=== PATIENT | male | born 1990 | race Caucasian/White ===

== ENCOUNTER 2022-07-08 08:56 | Emergency (ER) | payer SELFPAY ==
[2022-07-08 09:27] VITALS: BP 115/68; PULSE 77; RESP 14; TEMP 36.3; O2SAT 99
--- NOTE | 2022-07-08 11:02 | PC.NURSE ---
pt. was ambulating in and out of the ED without difficulty while in the waiting room.
[2022-07-08] MEDS: ACETAMINOPHEN 325 MG TABLET 650 MG PO (12:01)
[2022-07-08] MEDS: IBUPROFEN 600 MG TABLET PO (12:01)
[2022-07-08] MEDS: LIDOCAINE 5% PATCH 1 PATCH TRANSDERM (12:02)
--- NOTE | 2022-07-08 12:02 | ED.BACK ---
HPI - Back Pain/Injury General Chief Complaint: Back Pain/Injury Stated Complaint: back days Time Seen by Provider: 07/08/22 11:21 History of Present Illness HPI Narrative: 31-year-old male here for evaluation of right-sided back pain for the past several hours. Patient states that he was twisting his thorax to put his belt on and he felt pain on the right side of his back. States the pain improves when he is at rest and is worse when he is twisting his thorax. He has not attempted any medicine for his pain yet. He denies any numbness or tingling in his groin, incontinence or retention of bowel or bladder, weakness in his legs. Related Data Allergies Allergy/AdvReac Type Severity Reaction Status Date / Time No Known Allergies Allergy Verified 07/08/22 12:01 Review of Systems Review of Systems: Gen: Denies fevers or chills Eyes: Denies eye pain or visual change ENT: Denies congestion Respiratory: Denies shortness of breath or cough CV: Denies chest pain or palpitations GI: Denies abdominal pain nausea, emesis or diarrhea denies burning, urgency, frequency or hematuria Musculoskeletal: Reports right-sided back pain. Neuro: Denies numbness, tingling, weakness or focal weakness Skin: Denies rash Except as documented, all other systems reviewed and negative Exam Narrative: APPEARANCE: Well appearing, no pain in distress, well-nourished. Head: Normocephalic and atraumatic. EYES: PERRLA/EOMI, conjunctivae clear NOSE: No nasal drainage EARS: External ear normal in appearance THROAT: Oropharynx is clear. Mucous membranes are moist. NECK: Supple. No adenopathy, no masses. RESPIRATORY: Airway patent, respirations nonlabored. Clear to auscultation bilaterally, no rales, rhonchi, wheezing. CARDIOVASCULAR: Regular rate and rhythm without murmurs, rubs, or gallops. ABDOMINAL: Normoactive bowel sounds. Soft, nontender, nondistended. No rebound tenderness or guarding. MUSCULOSKELETAL: No midline tenderness to C, T or L-spine.. Patient's pain is in the right lower thoracic upper lumbar region; no rash in this area, area is nontender to palpation. NEURO: Normal speech. No focal neurologic deficits. SKIN: Skin is warm and dry. No rashes. PSYCHIATRIC: Normal affect/mood.. Course Vital Signs Vital signs: Vital Signs Temperature 97.4 F L 07/08/22 09:27 Pulse Rate 77 07/08/22 09:27 Respiratory Rate 14 07/08/22 09:27 Blood Pressure 115/68 07/08/22 09:27 Pulse Oximetry 99 07/08/22 09:27 Temperature 97.4 F L 07/08/22 09:27 Pulse Rate 77 07/08/22 09:27 Respiratory Rate 14 07/08/22 09:27 Blood Pressure 115/68 07/08/22 09:27 Pulse Oximetry 99 07/08/22 09:27 MDM - Back Pain/Injury MDM Narrative Medical decision making narrative: This patient presents with back pain most consistent with muscle sprain. Differential diagnoses includes lumbago versus musculoskeletal spasm / strain versus sciatica. Less likely sciatica as straight leg raise test was negative. No back pain red flags on history or physical. Presentation not consistent with malignancy (lack of history of malignancy, lack of B symptoms), fracture (no trauma, no bony tenderness to palpation), cauda equina (no bowel or urinary incontinence/retention, no saddle anesthesia, no distal weakness), AAA, viscus perforation, osteomyelitis or epidural abscess (no IVDU, vertebral tenderness), renal colic, pyelonephritis (afebrile, no CVAT, no urinary symptoms). Given the clinical picture, no indication for imaging at this time. He be discharged home with supportive measures, discussed return precautions and he voiced understanding. Discharge Plan Discharge Clinical Impression: Strain of lumbar region Patient Disposition: Home, Self-Care Condition: Stable Instructions: Antibiotic Form, Back Pain (ED) Additional Instructions: Your back pain today is likely due to a muscle strain. Alternate between Tylenol and ibuprofen. You can take 650mg of
== END 2022-07-08 12:25 | disposition home or self-care (01) ==
PROVIDERS: Emergency Provider Physician Assistant; PCP Family Medicine
DX: S39.012A Strain of muscle, fascia and tendon of lower back, initial encounter (principal); X50.9XXA Other and unspecified overexertion or strenuous movements or postures, initial encounter
CPT/HCPCS: 99283; A9270

== ENCOUNTER 2024-02-18 14:31 | Emergency (ER) | payer OTHER, SELFPAY ==
[2024-02-18 14:42] VITALS: BP 133/77; PULSE 82; RESP 16; TEMP 36.9; O2SAT 99
[2024-02-18] MEDS: TETANUS,DIPHTHERIA,AC PERTUSSIS ADULT (0.5 ML) BOOSTRIX IM (15:15)
--- NOTE | 2024-02-18 15:54 | ED.GENADULT ---
HPI - General Adult General Chief complaint: Wound/Laceration Stated complaint: cut ring finger right hand on sheet metal Source: patient Mode of arrival: ambulatory Limitations: no limitations History of Present Illness HPI narrative: Patient presents for evaluation of a laceration of the 4th digit of the right hand. He sustained the laceration about an hour ago while working. He cut his finger on a piece of sheet metal. He states his current pain is 1/10 in severity. No descriptive quality of the pain. No loss of range of motion. No paresthesias. Date of last tetanus unknown. He is not diabetic. He is ambidextrous. Related Data Allergies Allergy/AdvReac Type Severity Reaction Status Date / Time No Known Allergies Allergy Verified 07/08/22 12:01 Review of Systems Review of Systems: CONSTITUTIONAL: Denies fever, chills, or sweats. EYES: Denies visual changes, redness, or discharge. ENT: Denies rhinorrhea, congestion, sore throat, or otalgia. CARDIOVASCULAR: Denies chest pain, palpitations, or edema. RESPIRATORY: Denies cough or dyspnea. GASTROINTESTINAL: Denies abdominal pain, nausea, vomiting, or diarrhea. GENITOURINARY: Denies dysuria or hematuria. SKIN: Reports laceration of the 4th digit of the right hand MUSCULOSKELETAL:Reports pain in 4th digit of right hand. NEUROLOGIC: Denies headache, numbness, dizziness, or weakness. PSYCHIATRIC: Denies anxiety or depression. [facility] Past Medical History Medical History No pertinent past medical history Surgical History Surgical History No pertinent past surgical history Family History Family History Mother Family history non-contributory Social History Social History Substance use: never Gender identity (if verbalized by the patient): Male Spiritual care concerns: No Exam Narrative: GENERAL: Well-appearing, well-nourished, and in no acute distress. HEAD: Normocephalic, atraumatic. EYES: PERRLA and EOMI. ENT: Nares clear, no rhinorrhea or epistaxis. Mucous membranes moist. Oropharynx without tonsillar hypertrophy exudate or other lesions. Bilateral TMs pearly marques nonbulging NECK: Supple. No adenopathy or masses. No carotid bruits or JVD CHEST: Clear to auscultation. No respiratory distress. No wheezes rales or rhonchi HEART: Regular rate and rhythm. No murmur heard. Normal peripheral pulses. ABDOMEN: Soft, nontender, nondistended, normal active bowel sounds. EXTREMITIES: Normal range of motion. No edema. SKIN: Approximately 1 cm laceration in the flap formation to the lateral aspect of the distal phalanx of the 4th digit of the right hand NEURO: No focal deficits. Alert and oriented x3. PSYCH: Normal mood and affect. Course Course Emergency Course: This is a 33-year-old male who presented for evaluation of laceration to the right ring finger. Tetanus was updated. I recommended wound be closed with a suture to decrease risk of infection. He declined and requested closure with glue. Wound was thoroughly irrigated and closed with Dermabond. Pt tolerated well. Will discharge with cephalexin. Monitor wound closely for evidence of infection. Follow-up with primary provider. Go to the ER for any evidence of infection. Patient in agreement with plan of care Level of Care: Express Care Visit Vital Signs Vital signs: Vital Signs Temperature 36.9 C 02/18/24 14:42 Pulse Rate 82 02/18/24 14:42 Respiratory Rate 16 02/18/24 14:42 Blood Pressure 133/77 02/18/24 14:42 Pulse Oximetry 99 02/18/24 14:42 Oxygen Delivery Room Air 02/18/24 14:42 Temperature 36.9 C 02/18/24 14:42 Pulse Rate 82 02/18/24 14:42 Respiratory Rate 16 02/18/24 14:42 Blood Pressure 133/77 07
== END 2024-02-18 15:54 | disposition home or self-care (01) ==
PROVIDERS: Emergency Provider Nurse Practitioner; PCP Family Medicine
DX: S61.214A Laceration without foreign body of right ring finger without damage to nail, initial encounter (principal); W45.8XXA Other foreign body or object entering through skin, initial encounter; Y99.8 Other external cause status; Z23 Encounter for immunization
CPT/HCPCS: 12001; 90471; 90715; 99213; G0463

== ENCOUNTER 2025-07-20 08:51 | Emergency (ER) | payer OTHER, SELFPAY ==
--- NOTE | 2025-07-20 09:03 | PC.NURSE ---
Visual Acuity L - 20/30 R - 20/50 Both - 20/25
[2025-07-20 09:26] VITALS: BP 128/87; PULSE 74; RESP 16; TEMP 36.6; O2SAT 98
--- NOTE | 2025-07-20 09:37 | ED.EYEPROB ---
HPI - Eye Problem General Chief complaint: Eye Problems Stated complaint: R eye irritated Time Seen by Provider: 07/20/25 09:01 Source: patient Mode of arrival: ambulatory Limitations: no limitations History of Present Illness HPI Narrative: Patient is a 34-year-old male who presents the ED with report of right eye irritation. 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 Complains of foreign body sensation, watery drainage, difficulty opening eye upon waking this morning. Denies significant pain. Denies vision changes. Does not wear contacts or glasses. Related Data Allergies Allergy/AdvReac Type Severity Reaction Status Date / Time No Known Allergies Allergy Verified 07/20/25 09:39 Review of Systems Review of Systems: All systems reviewed & are unremarkable except as noted in HPI. All systems reviewed & are unremarkable except as noted in HPI and below PMFSH Past Medical History Medical History No pertinent past medical history Surgical History Surgical History No pertinent past surgical history Family History Family History Mother Family history non-contributory Social History Social History Substance use: never Gender identity (if verbalized by the patient): Male Spiritual care concerns: No Exam Narrative: GENERAL: Well appearing, obese with BMI of 37.0, non-toxic, in no acute distress. HEAD: Normocephalic, atraumatic. EYES: PERRL/EOMI, L conjunctiva clear. R conjunctival injection. No chemosis or proptosis. No obvious FB. Slight erythema in right inferior periorbital region. No swelling. RESPIRATORY: Airway patent, respirations nonlabored. CARDIOVASCULAR: Regular rate and rhythm MUSCULOSKELETAL: Moves all extremities. No gross deformities. SKIN: Warm, dry, normal color. NEURO: A&O X3. Speech clear. PSYCHIATRIC: Appropriate mood and affect. Normal interaction. Course Vital Signs Vital signs: Vital Signs Temperature 97.8 F 07/20/25 09:26 Pulse Rate 74 07/20/25 09:26 Respiratory Rate 16 07/20/25 09:26 Blood Pressure 128/87 07/20/25 09:26 Pulse Oximetry 98 07/20/25 09:26 Oxygen Delivery Room Air 07/20/25 09:26 Temperature 97.8 F 07/20/25 09:26 Pulse Rate 74 07/20/25 09:26 Respiratory Rate 16 07/20/25 09:26 Blood Pressure 128/87 07/20/25 09:26 Pulse Oximetry 98 07/20/25 09:26 Oxygen Delivery Room Air 07/20/25 09:26 MDM MDM Narrative Medical decision making narrative: Visual Acuity L - 20/30 R - 20/50 Both - 20/25 Patient denies vision changes. Does not wear corrective lenses. Eyes are PERRLA, EOMI. Fluorescein staining with Wood's lamp examination performed, did reveal tiny conjunctival abrasion noted to sclera in 3oclock region in relation to cornea. No corneal abrasion. No obvious FB. IOP WNL, 16. Patient will be started on ofloxacin eyedrops. Will be referred to Ophthalmology. Discussed return precautions. Discharged in stable condition. Differential Diagnosis Differential Diagnosis: conjunctivitis, corneal abrasion, conjunctival abrasion, FB Medical Records I have reviewed the following patient records and this information was taken into consideration when formulating the assessment and plan.: previous labs, previous ER visits, previous hospitalizations and previous clinic visits Discharge Plan Discharge Clinical Impression: Conjunctival abrasion Qualifiers: Encounter type: initial encounter Laterality: right Qualified Code(s): S05.01XA - Injury of conjunctiva and corneal abrasion without foreign body, right eye, initial encounter Patient Disposition: Home Condition: Stable Instructions: Antibiotic Form, Corneal Abrasion (ED), Conjunctivitis (ED) Additional Instructions: Utilize ofloxacin eyedrops as prescribed to right eye. Avoid touching eye as much as possible. Wash hands frequently. Follow-up with eye doctor for further evaluation needed. Return for new or worsening concerns. Patient Language: Bruneian Prescriptions: New ofloxacin 0.3 % drops 2 drp RIGHT EYE QID Qty: 5 0RF No Action cephalexin 500 mg capsule 500 mg PO Q6H 10 Days Qty: 40 0RF Follow-up/Referrals: [facility] [Outside] Weston Vang MD [Primary Care Provider, Family Practice] Stand Alone Forms: Work/School Release IP Time of Disposition: 10:07
[2025-07-20] MEDS: TETRACAINE HCL 0.5% OPHTH SOLN 4 ML BTL 1 DROP EACH EYE (10:35)
[2025-07-20] MEDS: FLUORESCEIN SOD 1 MG/STRIP EACH EYE (10:35)
[2025-07-20] MEDS: OFLOXACIN 0.3% OPHTH SOLN 5 ML BTL 2 DROP RIGHT EYE (10:35)
== END 2025-07-20 10:37 | disposition home or self-care (01) ==
PROVIDERS: Emergency Provider Physician Assistant; PCP Family Medicine
DX: S05.01XA Injury of conjunctiva and corneal abrasion without foreign body, right eye, initial encounter (principal); X58.XXXA Exposure to other specified factors, initial encounter
CPT/HCPCS: 99199; 99283; A9270